=== PATIENT | male | born 2000 | race Hispanic/Latino ===

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

== ENCOUNTER 2023-09-23 18:43 | Emergency (ER) | payer OTHER ==
[2023-09-23] MEDS ORDERED: NA CHLORIDE 0.9% 1,000 ML ONE (19:29)
[2023-09-23] MEDS ORDERED: PANTOPRAZOLE 40 MG INJ ONE (19:29)
[2023-09-23] MEDS ORDERED: ONDANSETRON 4 MG/2 ML VIAL ONE (19:29)
[2023-09-23 19:38] LABS: Absolute Eosinophils 0.1 K/uL (0-0.5); Absolute Monocytes 0.7 K/uL (0.1-1.3); Basophils % 0.4 % (0-1.3); Eosinophils % 0.8 % (0-4.4); Hematocrit 48.2 % (39.6-49.0); Hemoglobin 16.4 g/dL (13.6-17.9); Lymphocytes % 18.4 % (15.3-44.8); MCH 30.7 pg (27.0-35.0); MCHC 34.1 g/dL (32.0-36.0); MPV 7.8 fL (7.6-11.3); Monocytes % 6.9 % (3.3-12.3); Neutrophils % 73.5 % (41.7-73.7); Platelets 263 thou/uL (152-406); RBC Red Blood Cell Count 5.35 M/uL (4.33-5.43); Red Cell Distribution Width 13.4 % (12.1-15.2)
[2023-09-23 19:55] LABS: ALT/SGPT 24 U/L (16-61); Albumin 4.2 g/dL (3.4-5.0); Albumin/Globulin Ratio 1.1 (1.1-1.8); Alkaline Phosphatase 100 U/L (45-117); Anion Gap 6.6 mEq/L (5.0-15.0); BUN Blood Urea Nitrogen 10 mg/dL (7-18); Bicarbonate 29 mEq/L (21-32); Bilirubin Total 1.1 mg/dL (0.2-1.0); Globulin 3.8 g/dL (2.3-3.5); Glomerular Filtration Rate 96 ml/min (=/>90); Glucose Level 123 mg/dL (74-106); Lipase 53 U/L (13-75); Potassium 3.6 mEq/L (3.5-5.1); Sodium Level 135 mEq/L (136-145)
[2023-09-23 19:56] LABS: AST/SGOT < 10 U/L (15-37)
--- NOTE | 2023-09-23 20:47 | RAD REPORT ---
EXAM DESCRIPTION: Maureen Single View09/23/2023 8:35 pm CLINICAL HISTORY: vomiting COMPARISON: No comparisons TECHNIQUE: Portable AP view of the chest. FINDINGS: The lungs are clear. No pneumothorax or effusion. The cardiomediastinal contours are unre markable. IMPRESSION: No acute cardiopulmonary process.
--- NOTE | 2023-09-23 21:21 | RAD REPORT ---
EXAM DESCRIPTION: US - Abdomen Exam Limited - 09/23/2023 8:04 pm CLINICAL HISTORY: vomiting COMPARISON: ABDOMEN 1 VIEW KUB dated 02/12/2007 TECHNIQUE: Sonographic grayscale and color flow images of the right upper abdominal quadrant were o btained. FINDINGS: The gallbladder demonstrates no gallstones. No pericholecystic fluid or gallbladder wall t hickening. The common bile duct is normal measuring 1 mm. The liver demonstrates no findings of intrahepatic biliary dilatation. IMPRESSION: Unremarkable examination.
[2023-09-23] MEDS ORDERED: MAGNES/ALUMIN/SIMET 30ML UCUP ONE (21:32)
[2023-09-23] MEDS ORDERED: LIDOCAINE VISCOUS 2% 10ML ORAL SOLN ONE (21:32)
--- NOTE | 2023-09-23 21:51 | ER ---
Nurse's Notes [facility] Name: Shlomo Liu Jr Age: 23 yrs Sex: Male : 2000 Arrival Date: 09/23/2023 Time: 18:43 Bed 17 Private MD: Diagnosis: Nausea with vomiting, unspecified Presentation: 09/22 18:49 Chief complaint: Patient states: he has been having nausea and vomiting for a few weeks ap3 that has been getting worse over the last few days. patient reports nothing is making it better. Coronavirus screen: At this time, the client does not indicate any symptoms associated with coronavirus-19. Ebola Screen: No symptoms or risks identified at this time. Initial Sepsis Screen: Does the patient meet any 2 criteria? No. Patient's initial sepsis screen is negative. Does the patient have a suspected source of infection? No. Patient's initial sepsis screen is negative. Risk Assessment: Do you want to hurt yourself or someone else? Patient reports no desire to harm self or others. Onset of symptoms is unknown. 18:49 Method Of Arrival: Ambulatory ap3 18:49 Acuity: IGOR 3 ap3 Triage Assessment: 18:52 General: Appears uncomfortable, Behavior is cooperative, appropriate for age. Pain: ap3 Complains of pain in abdomen Pain currently is 7 out of 10 on a pain scale. at worst was 9 out of 10 on a pain scale. Pain began a few weeks ago. Neuro: Level of Consciousness is awake, alert, obeys commands, Oriented to person, place, time, situation, Speech is normal, Facial symmetry appears normal. Cardiovascular: Patient's skin is warm and dry. Respiratory: Airway is patent Respiratory effort is even, unlabored, Respiratory pattern is regular, symmetrical. GI: Reports epigastric pain, gaseousness, indigestion, nausea, vomiting. Historical: - Allergies: 18:51 No Known Allergies; ap3 - Home Meds: 18:51 None [Active]; ap3 - PMHx: 18:51 None; ap3 - Immunization history:: Client reports having NOT received the Covid vaccine. Flu vaccine is up to date. - Infectious Disease History:: Denies. - Social history:: Smoking status: Reported history of juuling and/or vaping. Screenin:53 [facility] ED Fall Risk Assessment (Adult) History of falling in the last 3 months, ap3 including since admission No falls in past 3 months (0 pts) Confusion or Disorientation No (0 pts) Intoxicated or Sedated No (0 pts) Impaired Gait No (0 pts) Mobility Assist Device Used No (0 pt) Altered Elimination No (0 pt) Score/Fall Risk Level 0 - 2 = Low Risk Oriented to surroundings, Maintained a safe environment, Educated pt \T\ family on fall prevention, incl call for assistance when getting out of bed, Assessed \T\ reinforced patient's understanding of fall precautions, Provided non-skid footwear, Hourly rounding (assess needs \T\ fall precautionary measures) done, Used ambulatory aids as needed (educated on \T\ assisted with), Used gait belt as appropriate. Abuse screen: Denies threats or abuse. Nutritional screening: No deficits noted. Tuberculosis screening: No symptoms or risk factors identified. Assessment: 19:00 General: Appears ill, well groomed, well developed, well nourished, Behavior is calm, me1 cooperative, appropriate for age, Reports n/v for a couple of weeks that has continued to get worse. Unable to keep anything down for the past couple of days. Pain: Denies pain. Neuro: Level of Consciousness is awake, alert, obeys commands, Oriented to person, place, time, situation, Appropriate for age. Cardiovascular: Patient's skin is warm and dry. Respiratory: Airway is patent Respiratory effort is even, unlabored, Respiratory pattern is regular, symmetrical. GI: Reports nausea, vomiting, since past couple of weeks. GI: Abdomen is non-distended, Bowel sounds present X 4 quads. : No signs and/or symptoms were reported regarding the genitourinary system. EENT: No signs and/or symptoms were reported regarding the EENT system. Derm: Skin is intact, is healthy with good turgor, Skin is pink, warm \T\ dry. Musculoskeletal: No signs and/or symptoms reported regarding the musculoskeletal system. Vital Signs: 18:49 BP 136 / 99; Pulse 90; Resp 19; Temp 98.3; Pulse Ox 100% ; Weight 76.2 kg; Height 5 ft. ap3 4 in. ; Pain 7/10; 19:27 BP 132 / 87; Pulse 70; Resp 16; Pulse Ox 99% on R/A; me1 20:00 BP 121 / 80; Pulse 67; Resp 16; Pulse Ox 99% on R/A; me1 21:00 BP 139 / 99; Pulse 83; Resp 16; Pulse Ox 98% on R/A; me1 21:30 BP 122 / 84; Pulse 69; Resp 16; Pulse Ox 99% on R/A; me1 18:49 Body Mass Index 28.84 (76.20 kg, 162.56 cm) ap3 18:49 Pain Scale: Adult ap3 ED Course: 18:45 Patient arrived in ED. im 18:46 Getachew Casiano PA is PHCP. cp 18:46 Ian Lorenzo DO is Attending Physician. cp 18:51 Triage completed. ap3 18:53 Arm band placed on right wrist. ap3 19:00 Patient has correct armband on for positive identification. Bed in low position. Call me1 light in reach. Side rails up X2. Provided Education on: POC. Verbalized understanding. . 19:28 Yudith Gonzalez, RN is Primary Nurse. me1 19:30 CBC with Diff Sent. rv1 19:30 CMP Sent. rv1 19:30 Lipase Sent. rv1 19:30 Inserted saline lock: 20 gauge in left antecubital area, using aseptic technique. Blood rv1 collected. 20:06 Abdomen Limited US In Process Unspecified. EDMS 20:37 XRAY Chest (1 view) In Process Unspecified. EDMS 21:19 No provider procedures requiring assistance completed. me1 21:50 Albino Rosas MD is Referral Physician. cp 22:00 IV discontinued, intact, bleeding controlled, No redness/swelling at site. Pressure me1 dressing applied. Administered Medications: 19:01 CANCELLED (Physician Discretion): [id number] mg IVP once; dilute with 10 mL 0.9% cp NaCl; give over 2 minutes 19:35 Drug: NS 0.9% IV 1000 ml IV at 1 bolus Per protocol; 1000 mL bolus Route: IV; Rate: 1 me1 bolus; Site: left antecubital; 21:52 Follow up: Response: No adverse reaction; IV Status: Completed infusion; IV Intake: me1 1000ml 19:35 Drug: Ondansetron IVP 4 mg IVP once; over 2 minutes Route: IVP; Site: left antecubital; me1 21:14 Follow up: Response: No adverse reaction; Nausea is decreased me1 19:36 Drug: Pantoprazole IVP 40 mg IVP once Route: IVP; Site: left antecubital; me1 21:15 Follow up: Response: No adverse reaction me1 21:34 Drug: GI Cocktail without - (Maalox PO 30 ml, Lidocaine Mucous Membrane 2 % 15 me1 ml) PO once Route: PO; 21:52 Follow up: Response: No adverse reaction; Pain is decreased me1 Medication: 18:53 VIS not applicable for this client. ap3 Intake: 21:52 IV: 1000ml; Total: 1000ml. me1 Outcome: 21:51 Discharge ordered by MD. cp 22:00 Patient left the ED. me1 22:00 Discharged to home ambulatory, with family, me1 22:00 Condition: stable 22:00 Discharge instructions given to patient, family, Instructed on discharge instructions, follow up and referral plans. medication usage, Demonstrated understanding of instructions, follow-up care, medications, Prescriptions given X 2, Signatures: Dispatcher [employer] EDMS Getachew Casiano PA PA cp Prokisch, Amanda, RN RN ap3 Karen Arndt rv1 Joanne Brizuela Michelle, RN RN me1
--- NOTE | 2023-09-23 21:51 | EDPHYS ---
Physician Documentation [facility] Name: Shlomo Liu Jr Age: 23 yrs Sex: Male : 2000 Arrival Date: 09/23/2023 Time: 18:43 Bed 17 Private MD: ED Physician Ian Lorenzo HPI: 09/22 19:00 This 23 yrs old Male presents to ER via Ambulatory with complaints of cp Nausea/Vomiting. 19:00 The patient presents to the emergency department with nausea, vomiting, that is cp intermittent, described as bilious. Onset: The symptoms/episode began/occurred for several weeks, became persistent today. 19:00 Possible causes: unknown. The symptoms are aggravated by nothing. The symptoms are cp alleviated by nothing. Associated signs and symptoms: Pertinent positives: abdominal pain, anorexia, Pertinent negatives: diarrhea, fever, GI bleeding. Severity of symptoms: in the emergency department the symptoms are unchanged despite home interventions. Historical: - Allergies: 18:51 No Known Allergies; ap3 - Home Meds: 18:51 None [Active]; ap3 - PMHx: 18:51 None; ap3 - Immunization history:: Client reports having NOT received the Covid vaccine. Flu vaccine is up to date. - Infectious Disease History:: Denies. - Social history:: Smoking status: Reported history of juuling and/or vaping. ROS: 19:05 Constitutional: Negative for body aches, chills, fever, weight loss, cp 19:05 Eyes: Negative for injury, pain, redness, and discharge, cp 19:05 ENT: Negative for drainage from ear(s), ear pain, sore throat, difficulty swallowing, difficulty handling secretions, 19:05 Cardiovascular: Negative for chest pain, edema, palpitations, 19:05 Respiratory: Negative for cough, shortness of breath, wheezing, 19:05 Abdomen/GI: Positive for abdominal pain, nausea and vomiting, anorexia, Negative for diarrhea, constipation, hematemesis, 19:05 Neuro: Negative for altered mental status, dizziness, headache, weakness, 19:05 All other systems are negative, Exam: 19:10 Constitutional: The patient appears in no acute distress, alert, awake, non-toxic, well cp developed, well nourished, 19:10 Head/Face: Normocephalic, atraumatic. cp 19:10 Eyes: Periorbital structures: appear normal, Conjunctiva: normal, no exudate, no injection, Sclera: no appreciated abnormality, Lids and lashes: appear normal, bilaterally, 19:10 ENT: External ear(s): are unremarkable, Nose: is normal, Mouth: Lips: moist, Oral mucosa: pink and intact, moist, Posterior pharynx: Airway: no evidence of obstruction, patent, 19:10 Chest/axilla: Inspection: normal, 19:10 Cardiovascular: Rate: normal, Rhythm: regular, 19:10 Respiratory: the patient does not display signs of respiratory distress, Respirations: normal, no use of accessory muscles, no retractions, labored breathing, is not present, Breath sounds: are clear throughout, no decreased breath sounds, no stridor, no wheezing, 19:10 Abdomen/GI: Inspection: abdomen appears normal, Bowel sounds: active, all quadrants, Palpation: soft, in all quadrants, mild abdominal tenderness, in the epigastric area, right upper quadrant and left upper quadrant, rebound tenderness, is not appreciated, involuntary guarding, is not appreciated, 19:10 Back: pain, is absent, ROM is normal, 19:10 Neuro: Orientation: to person, place \T\ time. Mentation: is normal, Vital Signs: 18:49 BP 136 / 99; Pulse 90; Resp 19; Temp 98.3; Pulse Ox 100% ; Weight 76.2 kg; Height 5 ft. ap3 4 in. ; Pain 7/10; 19:27 BP 132 / 87; Pulse 70; Resp 16; Pulse Ox 99% on R/A; me1 20:00 BP 121 / 80; Pulse 67; Resp 16; Pulse Ox 99% on R/A; me1 21:00 BP 139 / 99; Pulse 83; Resp 16; Pulse Ox 98% on R/A; me1 21:30 BP 122 / 84; Pulse 69; Resp 16; Pulse Ox 99% on R/A; me1 18:49 Body Mass Index 28.84 (76.20 kg, 162.56 cm) ap3 18:49 Pain Scale: Adult ap3 MDM: 18:55 Patient medically screened. cp 21:50 Data reviewed: vital signs, nurses notes, lab test result(s), radiologic studies, CT cp scan, plain films, and as a result, I will discharge patient. 21:50 Differential diagnosis: gastritis, cholecystitis, pancreatitis, appendicitis, viral cp gastroenteritis, gastroenteritis. I considered the following discharge prescriptions or medication management in the emergency department Medications were administered in the Emergency Department. See MAR. Counseling: I had a detailed discussion with the patient and/or guardian regarding the historical points, exam findings, and any diagnostic results supporting the discharge/admit diagnosis, lab results, radiology results, to return to the emergency department if symptoms worsen or persist or if there are any questions or concerns that arise at home. Response to treatment: the patient's symptoms have markedly improved after treatment, and as a result, I will discharge patient. Special discussion: Based on the patient's Hx, exam, and Dx evaluation, there is no indication for emergent surgery or inpatient Tx. It is understood by the patient/guardian that if the Sx's persist or worsen they need to return immediately for re-evaluation. 09/22 18:59 Order name: CBC with Diff; Complete Time: 19:45 cp 09/22 19:45 Interpretation: Reviewed. 09/22 18:59 Order name: CMP; Complete Time: 19:57 cp 09/22 19:57 Interpretation: Normal except: GLUC 123; NA 135; AST < 10; BILIT 1.1; GLOB 3.8. 09/22 18:59 Order name: Lipase; Complete Time: 19:57 cp 09/22 18:59 Order name: Abdomen Limited US; Complete Time: 21:22 cp 09/22 19:46 Order name: XRAY Chest (1 view); Complete Time: 20:59 cp 09/22 20:59 Interpretation: Report review. 09/22 18:59 Order name: IV Saline Lock; Complete Time: 19:30 cp 09/22 18:59 Order name: Labs collected and sent; Complete Time: 19:30 cp Administered Medications: 19:01 CANCELLED (Physician Discretion): [id number] mg IVP once; dilute with 10 mL 0.9% cp NaCl; give over 2 minutes 19:35 Drug: NS 0.9% IV 1000 ml IV at 1 bolus Per protocol; 1000 mL bolus Route: IV; Rate: 1 me1 bolus; Site: left antecubital; 21:52 Follow up: Response: No adverse reaction; IV Status: Completed infusion; IV Intake: me1 1000ml 19:35 Drug: Ondansetron IVP 4 mg IVP once; over 2 minutes Route: IVP; Site: left antecubital; me1 21:14 Follow up: Response: No adverse reaction; Nausea is decreased me1 19:36 Drug: Pantoprazole IVP 40 mg IVP once Route: IVP; Site: left antecubital; me1 21:15 Follow up: Response: No adverse reaction me1 21:34 Drug: GI Cocktail without - (Maalox PO 30 ml, Lidocaine Mucous Membrane 2 % 15 me1 ml) PO once Route: PO; 21:52 Follow up: Response: No adverse reaction; Pain is decreased me1 Disposition Summary: 09/23/23 21:51 Discharge Ordered Notes: Location: Home cp Problem: new cp Symptoms: have improved cp Condition: Stable cp Diagnosis - Nausea with vomiting, unspecified cp Followup: cp - With: Albino Rosas MD - When: 2 - 3 days - Reason: Recheck today's complaints Discharge Instructions: - Discharge Summary Sheet cp - Nausea and Vomiting, Adult cp Forms: - Medication Reconciliation Form cp - Antibiotic Education cp - Prescription Opioid Use cp - Patient Portal Instructions cp - Leadership Thank You Letter cp - Work release form me1 Prescriptions: - Protonix 40 mg Oral Tablet - take 1 tablet ORAL route once daily; 30 tablet; Refills: 0, Product Selection cp Permitted - Zofran 4 mg Oral Tablet - take 1 tablet ORAL route every 12 hours As needed; 20 tablet; Refills: 0, cp Product Selection Permitted Addendum: 09/24/2023 22:33 I was immediately available on-site in the Emergency Department for consultation in the m s3 care of the patient. . Signatures: Dispatcher [employer] EDMS Getachew Casiano PA PA cp Prokisch, Amanda, RN RN ap3 Ian Lorenzo DO DO ms3 Yudith Gonzalez, LALI RN me1 Corrections: (The following items were deleted from the chart) 09/22 19:00 18:59 CBC+H.LAB.BRZ ordered. EDMS EDMS 19:00 18:59 COMPREHENSIVE METABOLIC PANEL+C.LAB.BRZ ordered. EDMS EDMS 19:00 18:59 LIPASE+C.LAB.BRZ ordered. EDMS EDMS 19:00 19:00 Abdomen Limited+US.RAD.BRZ ordered. EDMS EDMS 19:01 18:59 Famotidine IVP 20 mg IVP once; dilute with 10 mL 0.9% NaCl; give over 2 minutes cp ordered. cp
[2023-09-23 22:34] VITALS: BP 122/84; TEMP 98.3; O2SAT 99
== END 2023-09-23 22:00 | disposition home or self-care (01) ==
LOC: ER 18:43
DX: R11.2 Nausea with vomiting, unspecified (principal)
CPT/HCPCS: 96361; 85025; 36415; 83690; 80053; 71045; 76705; 96375; 96374; 99284; C9113; J2405; J7030